=== PATIENT | female | born 1975 | race Caucasian/White ===

== ENCOUNTER 2016-06-26 10:58 | Emergency (ER) | payer MEDICAID ==
[~2016-06-26] VITALS: Ht 160 cm; Wt 86.0 kg
[2016-06-26 12:02] LABS: BASOPHILS % 0.5 % (0.0-2.0); HEMATOCRIT. 36.5 % (36.0-48.0); HEMOGLOBIN. 12.5 g/dL (12.0-16.0); LYMPHOCYTES % 19.9 % (20.0-50.0); MEAN CORPUSCULAR HGB CONC 34.2 g/dL (31.0-37.0); MEAN CORPUSCULAR VOLUME 87.8 fL (81.0-99.0); MEAN PLATELET VOLUME 9.1 fl (7.4-10.4); NEUTROPHILS % 70.6 % (40.0-76.0); PLATELET 257 x1000/uL (130-400); RED BLOOD CELL COUNT 4.16 mill/uL (4.2-5.4); RED CELL DISTRIBUTION WIDTH 13.1 % (11.6-14.6); WHITE BLOOD COUNT 9.1 x1000/uL (4.5-11.0)
[2016-06-26 12:10] LABS: PROTHROMBIN TIME 10.6 sec
[2016-06-26 12:12] LABS: ALBUMIN 3.9 g/dL (3.4-5.0); ANION GAP 14; CALCIUM 8.8 mg/dL (8.5-10.1); CARBON DIOXIDE 24 mEq/L (21-32); CHLORIDE 105 mEq/L (98-107); INDEX HEMOLYSI 1 (1-3); INDEX ICTERIC 1 (1-4); INDEX LIPEMIC 1 (1-3); UREA NITROGEN BLOOD 12 mg/dL (7-21)
[2016-06-26 12:18] LABS: ALANINE AMINOTRANSFERASE 18 IU/L (13-61); NT PRO B-TYPE NATRIURETIC PEP 71 pg/mL (5-125); TROPONIN I < 0.02 ng/mL (0.00-0.04); eGFR > 60 mL/min (>60)
[2016-06-26] MEDS ORDERED: KETOROLAC 30MG/ML VIAL IV ONE (13:15)
[2016-06-26 16:11] VITALS: BP 156/91
== END 2016-06-26 16:25 | disposition home or self-care (01) ==
LOC: ER 13:44
DX: R07.89 Other chest pain (principal); Z88.0 Allergy status to penicillin; Z90.49 Acquired absence of other specified parts of digestive tract
CPT/HCPCS: 36415; 71010; 80053; 83880; 84484; 85025; 85610; 93005; 96374; 99285; J1885

== ENCOUNTER 2016-10-06 11:20 | Inpatient (IN) | payer MEDICAID, OTHER ==
[~2016-10-06] VITALS: Ht 160 cm; Wt 86.2 kg
[2016-10-06] MEDS ORDERED: ASPIRIN 81MG TABLET PO STA (14:13)
[2016-10-06] MEDS ORDERED: NITROGLYCERIN 0.4MG TABLET SL SL PRN (14:15)
[2016-10-06] MEDS ORDERED: ONDANSETRON 4MG ODT PO ONE (14:30)
[2016-10-06 14:37] LABS: BASOPHILS % 0.9 % (0.0-2.0); EOSINOPHILS % 1.1 % (0.0-5.0); HEMATOCRIT. 35.4 % (36.0-48.0); HEMOGLOBIN. 12.2 g/dL (12.0-16.0); LYMPHOCYTES % 22.1 % (20.0-50.0); MEAN CORPUSCULAR HEMOGLOBIN 30.6 pg (28.0-32.0); MEAN CORPUSCULAR VOLUME 88.6 fL (81.0-99.0); MEAN PLATELET VOLUME 8.7 fl (7.4-10.4); MONOCYTES % 4.4 % (2.0-8.0); NEUTROPHILS % 71.5 % (40.0-76.0); PLATELET 288 x1000/uL (130-400); RED BLOOD CELL COUNT 3.99 mill/uL (4.2-5.4); RED CELL DISTRIBUTION WIDTH 12.9 % (11.6-14.6)
[2016-10-06 14:43] LABS: CARBON DIOXIDE 19 mEq/L (21-32); CHLORIDE 108 mEq/L (98-107)
[2016-10-06 14:45] LABS: D-DIMER 0.2 mg/L FEU (<0.50); PARTIAL THROMBOPLASTIN TIME 28.1 sec (23.4-31.0); PROTHROMBIN TIME 10.7 sec (9.4-11.6)
[2016-10-06 14:47] LABS: HCG SCREEN NEGATIVE
[2016-10-06 14:51] LABS: TROPONIN I < 0.02 ng/mL (0.00-0.04)
[2016-10-06 23:22] VITALS: BP 154/73
[2016-10-06] MEDS: AMLODIPINE 2.5MG TABLET PO SCH (23:58)
[2016-10-07] VITALS: BP 111/69
[2016-10-07] MEDS: CAPSAICIN 0.025% CREAM 60GM TOP SCH ×2 (02:05→09:38)
[2016-10-07 04:00] VITALS: BP 114/68
[2016-10-07 06:43] LABS: EOSINOPHILS % 2.5 % (0.0-5.0); HEMATOCRIT. 32.4 % (36.0-48.0); LYMPHOCYTES % 29.2 % (20.0-50.0); MEAN CORPUSCULAR HEMOGLOBIN 30.3 pg (28.0-32.0); MEAN CORPUSCULAR VOLUME 89.6 fL (81.0-99.0); MEAN PLATELET VOLUME 9.1 fl (7.4-10.4); MONOCYTES % 7.5 % (2.0-8.0); NEUTROPHILS % 59.8 % (40.0-76.0); PLATELET 253 x1000/uL (130-400); RED BLOOD CELL COUNT 3.62 mill/uL (4.2-5.4); RED CELL DISTRIBUTION WIDTH 13.1 % (11.6-14.6)
[2016-10-07] MEDS ORDERED: XULANE TD (07:06)
[2016-10-07 07:10] LABS: CHLORIDE 106 mEq/L (98-107)
[2016-10-07 07:27] LABS: CARBON DIOXIDE 24 mEq/L (21-32); HDL CHOLESTEROL 44 mg/dL (40-59); LDL CHOLESTEROL 78 mg/dL (5-100); TROPONIN I < 0.02 ng/mL (0.00-0.04)
[2016-10-07 08:10] VITALS: BP 115/69
[2016-10-07] MEDS ORDERED: ASPIRIN 81MG EC TABLET PO SCH (09:00)
[2016-10-07] MEDS: AMLODIPINE 2.5MG TABLET PO SCH (09:38)
[2016-10-07] MEDS ORDERED: ONDANSETRON HCL 4MG/2ML VIAL IV PRN (10:15)
[2016-10-07] MEDS ORDERED: HYDROCODONE/ACETAMINOPHEN 10/325MG TABLET PO PRN (10:15)
[2016-10-07] MEDS ORDERED: LORAZEPAM 2MG/ML CPJ IV PRN (10:15)
[2016-10-07] MEDS ORDERED: REGADENOSON 0.4 MG/5 ML IV SCH (11:30)
[2016-10-07 12:08] VITALS: BP 121/69
[2016-10-07] MEDS ORDERED: REGADENOSON 0.4 MG/5 ML IV ONE (12:52)
[2016-10-07 15:15] VITALS: BP 115/69
[2016-10-07 15:56] VITALS: BP 119/75
== END 2016-10-07 18:20 | disposition home or self-care (01) | DRG 203 ==
LOC: ER 14:19 → 6WST 15:27 → EDBEDREQ 15:28 → EDBEDREQTM 15:28 → ENRESERV 18:38 → 6WST 21:56
PROVIDERS: ADMIT Internal Medicine; ATTEND Internal Medicine
DX: M94.0 Chondrocostal junction syndrome [Tietze] (principal); I11.9 Hypertensive heart disease without heart failure; I24.9 Acute ischemic heart disease, unspecified; E78.1 Pure hyperglyceridemia; F41.9 Anxiety disorder, unspecified; E78.00 Pure hypercholesterolemia, unspecified; E78.5 Hyperlipidemia, unspecified; F41.0 Panic disorder [episodic paroxysmal anxiety]; Z79.899 Other long term (current) drug therapy; Z82.3 Family history of stroke; Z82.49 Family history of ischemic heart disease and other diseases of the circulatory system; Z90.49 Acquired absence of other specified parts of digestive tract; Z88.0 Allergy status to penicillin
CPT/HCPCS: 36415; 71010; 78452; 80048; 80061; 84443; 84484; 84703; 85025; 85379; 85610; 85730; 93005; 93017; 93306; 99285; A9500; J2785; Q0162